=== PATIENT | male | born 1975 | race Caucasian/White ===

== ENCOUNTER 2017-06-11 21:04 | Emergency (ER) | payer MEDICAID ==
[~2017-06-11] VITALS: Ht 172.7 cm; Wt 96.0 kg
[2017-06-12] MEDS ORDERED: BACITRACIN ZINC OINT UDPKT TOP ONE (01:00)
[2017-06-12] MEDS ORDERED: ONDANSETRON HCL 4MG/2ML VIAL IM ONE (01:00)
[2017-06-12] MEDS ORDERED: MORPHINE SULFATE 10 MG/ML CPJ IM ONE (01:00)
[2017-06-12] MEDS ORDERED: TETANUS, DIPHTHERIA, PERTUSSIS VAC/PF 0.5ML (>7YR OLD) IM ONE (01:00)
[2017-06-12 06:00] VITALS: BP 138/63
== END 2017-06-12 06:35 | disposition home or self-care (01) ==
LOC: ER 22:09
DX: S02.2XXA Fracture of nasal bones, initial encounter for closed fracture (principal); S01.21XA Laceration without foreign body of nose, initial encounter; Y08.89XA Assault by other specified means, initial encounter; Y93.89 Activity, other specified; Y92.89 Other specified places as the place of occurrence of the external cause; Y99.8 Other external cause status
CPT/HCPCS: 12011; 70486; 90471; 90715; 96372; 99284; J2270; J2405